=== PATIENT | male | born 1990 | race Hispanic/Latino ===

== ENCOUNTER 2017-10-17 01:19 | Emergency (ER) | payer OTHER ==
[2017-10-17 01:27] VITALS: BP 138/63; PULSE 96; RESP 17; TEMP 98.6; O2SAT 98
--- NOTE | 2017-10-17 01:30 | ED PDOC ---
HPI: Psych/Substance Abuse Time Seen by Provider: 10/17/17 01:28 Chief Complaint (Nursing): Alcohol Ingestion Chief Complaint (Provider): alcohol ingestion History Per: Patient (27 y/o male brought by EMS for apparent etoh intoxication. Patient found sleeping outside. Denies any complaints. Admits to etoh intake. No head injury/assault.) Past Medical History Reviewed: Historical Data, Nursing Documentation, Vital Signs Vital Signs: Last Vital Signs Temp 98.6 F 10/17/17 01:23 Pulse 96 H 10/17/17 01:23 Resp 17 10/17/17 01:23 BP 138/63 10/17/17 01:23 Pulse Ox 98 10/17/17 01:23 - Medical History PMH: Anxiety - Family History Family History: States: No Known Family Hx - Allergies Allergies/Adverse Reactions: Allergies Allergy/AdvReac Type Severity Reaction Status Date / Time No Known Allergies Allergy Verified 05/29/14 04:26 Review of Systems ROS Statement: Except As Marked, All Systems Reviewed And Found Negative Physical Exam - Reviewed Nursing Documentation Reviewed: Yes Vital Signs Reviewed: Yes - Physical Exam Appears: Positive for: Well, Non-toxic, No Acute Distress Head Exam: Positive for: ATRAUMATIC, NORMAL INSPECTION, NORMOCEPHALIC Skin: Positive for: Normal Color, Warm, DRY Eye Exam: Positive for: EOMI, Normal appearance, PERRL ENT: Positive for: Normal ENT Inspection Neck: Positive for: Normal, Painless ROM Cardiovascular/Chest: Positive for: Regular Rate, Rhythm Respiratory: Positive for: CNT, Normal Breath Sounds Gastrointestinal/Abdominal: Positive for: Normal Exam, Bowel Sounds, Soft Back: Positive for: Normal Inspection Extremity: Positive for: Normal ROM Neurologic/Psych: Positive for: Alert, Oriented - ECG O2 Sat by Pulse Oximetry: 98 - Progress ED Course And Treament: Patient noted with steady gait. Disposition - Clinical Impression Clinical Impression: Alcohol ingestion - Patient ED Disposition Is Patient to be Admitted: No - Disposition Disposition: Routine/Home Disposition Time: :29 Condition: FAIR Instructions: Alcohol Intoxication (ED)
== END 2017-10-17 03:30 | disposition home or self-care (01) ==
LOC: H.ER 01:19
DX: F10.129 Alcohol abuse with intoxication, unspecified (principal)